=== PATIENT | female | born 1965 | race Asian ===

== ENCOUNTER → 2017-07-04 | Outpatient (CLI) | payer BC | LOC: BRMIMAGING 11:29 | PROVIDERS: ATTEND Internal Medicine Hematology & Oncology | DX: Z12.31 Encounter for screening mammogram for malignant neoplasm of breast (principal); Z80.3 Family history of malignant neoplasm of breast ==

== ENCOUNTER → 2018-01-09 | Outpatient (CLI) | payer BC ==
[~2018-01-09] MED LIST: GADOBUTROL 10 ML VIAL IVP ONE
== END ==
LOC: FIMAGING 09:07
PROVIDERS: ATTEND Internal Medicine Hematology & Oncology
DX: Z12.31 Encounter for screening mammogram for malignant neoplasm of breast (principal); Z13.820 Encounter for screening for osteoporosis; N63.21 Unspecified lump in the left breast, upper outer quadrant; N63.10 Unspecified lump in the right breast, unspecified quadrant; M85.89 Other specified disorders of bone density and structure, multiple sites; C92.10 Chronic myeloid leukemia, BCR/ABL-positive, not having achieved remission; Z78.0 Asymptomatic menopausal state; Z92.3 Personal history of irradiation
CPT/HCPCS: 0159T; 77059; 77080; A9585; C8908

== ENCOUNTER 2018-02-06 07:50 | Outpatient (CLI) | payer BC ==
[2018-02-06] MEDS ORDERED: fentaNYL 100 MCG/2 ML INJ IVP PRN (07:59)
[2018-02-06] MEDS ORDERED: MIDAZOLAM 2 MG/2 ML VIAL IVP PRN (07:59)
[2018-02-06] MEDS ORDERED: FLUMAZENIL 0.5 MG/5 ML MDV IVP PRN (07:59)
[2018-02-06] MEDS ORDERED: NALOXONE HCL 0.4 MG/ML INJ IVP PRN (07:59)
[2018-02-06] MEDS ORDERED: NS 1,000 ML IV SCH (08:00)
[2018-02-06] MEDS ORDERED: GADOBUTROL 10 ML VIAL IVP ONE ×2 (08:24→09:01)
[2018-02-06] MEDS ORDERED: BUPIVACAINE 0.25% 30 ML SDV ONE (08:24)
[2018-02-06] MEDS ORDERED: LIDOCAINE 1% 5 ML SDV ONE ×2 (08:24→09:01)
[2018-02-06] MEDS ORDERED: NA BICARBONATE 50 MEQ/50 ML VIAL ONE (08:25)
[2018-02-06] MEDS ORDERED: BUPIVACAINE 0.5% 30 ML SDV ONE (08:38)
[2018-02-06] MEDS ORDERED: THROMBIN (BOVINE) 5,000 UNIT VIAL TP ONE ×2 (08:49→08:54)
--- NOTE | 2018-02-06 09:13 | PDPROPOC ---
Sedation Plan of Care Sedation Plan of Care: vital signs stable, mental status noted, patient educated of risks, benefits, alternatives, patient can tolerate sedation ASA Classification: ASA 1 Planned drugs: fentanyl, midazolam Mallampati Score: Class 1 Mallampati Reference Image: Patient passed 3-3-2 rule?: Yes
--- NOTE | 2018-02-06 09:13 | PDGENHP ---
History & Physical Chief Complaint: abnormal breast mri, r/o ca Cardiorespiratory Assessment: heart reg, lungs clear
[2018-02-06] MEDS ORDERED: ONDANSETRON 4 MG/2 ML VIAL IVP PRN (11:42)
[2018-02-06] MEDS ORDERED: ACETAMINOPHEN 325 MG TAB PO PRN (11:42)
[2018-02-06 12:17] VITALS: BP 101/68
== END 2018-02-06 12:00 | disposition home or self-care (01) ==
LOC: FIMAGING 07:50
PROVIDERS: ATTEND Internal Medicine Hematology & Oncology
DX: C85.19 Unspecified B-cell lymphoma, extranodal and solid organ sites (principal); C92.10 Chronic myeloid leukemia, BCR/ABL-positive, not having achieved remission
CPT/HCPCS: A9585; J2250; J2310; J3010